=== PATIENT | female | born 1960 | race Caucasian/White ===

== ENCOUNTER 2018-12-12 10:33 | Outpatient (CLI) | payer BC ==
--- NOTE | 2018-12-12 11:48 | CT ---
CT ABDOMEN AND PELVIS WITH IV CONTRAST 12/12/2018 CLINICAL INFORMATION: Right lower quadrant abdominal pain. Surgical history of cholecystectomy and hysterectomy. COMPARISON: 01/29/2013 Technique: Multiple contiguous axial CT images are obtained through the abdomen and pelvis with IV contrast. Cor onal reformatted images are provided. FINDINGS: Lower Chest: within normal limits. Vessels: Mild vascular calcifications in the abdominal aorta. Abdomen: Portal vein:Patent Gallbladder: Surgically absent. Liver: Calcified granuloma in the left hepatic lobe. Liver otherwise has a normal CT appearance. Spleen: within normal limits. Pancreas: within normal limits. Adrenals: within normal limits. Kidneys: within normal limits. Bowel: Normal caliber. There is a moderate amount of retained fecal material seen throughout the colo n. Appendix: Not visualized. There are no secondary signs to suggest appendicitis. Peritoneum: No ascites or free air; no fluid collection. Mesentery and Retroperitoneum: No enlarged mesenteric or retroperitoneal lymph nodes. Abdominal Wall: within normal limits. Pelvis: Reproductive Organs: Evidence of hysterectomy. Pelvis within normal limits. Bladder: within normal limits. Bones: Degenerative changes are seen in the lower thoracic spine. There is right convex curvature of the thoracolumbar spine. No suspicious lytic or sclerotic osseous lesions are identified. IMPRESSION: 1. No acute findings are seen in the abdomen or pelvis. 2. Evidence of hysterectomy. 3. Moderate amount of retained fecal material seen in the colon. 4. The appendix is not visualized on this examination, but no inflammatory changes or secondary signs to suggest appendicitis are identified.
== END 2018-12-12 10:34 | disposition home or self-care (01) ==
LOC: SCSCT 10:33
PROVIDERS: ATTEND Nurse Practitioner Family
DX: R10.31 Right lower quadrant pain (principal); K59.00 Constipation, unspecified; Z90.710 Acquired absence of both cervix and uterus
CPT/HCPCS: 74177

== ENCOUNTER 2020-05-31 12:57 | Outpatient (CLI) | payer BC | END 2020-05-31 12:58 | disposition home or self-care (01) | LOC: BICRAD 12:57 | PROVIDERS: ATTEND Internal Medicine Pulmonary Disease | DX: R06.00 Dyspnea, unspecified (principal) | CPT/HCPCS: 71046 ==